=== PATIENT | male | born 1975 | race Caucasian/White ===

== ENCOUNTER 2024-04-04 10:41 | Outpatient (CLI) | payer BC ==
[2024-04-04] MEDS ORDERED: Iopamidol 300 61% 100 ML VIAL FS ONE (15:45)
== END 2024-04-04 10:42 | disposition home or self-care (01) ==
LOC: CSHCT 10:41
PROVIDERS: ATTEND Urology
DX: C62.92 Malignant neoplasm of left testis, unspecified whether descended or undescended (principal); Z90.79 Acquired absence of other genital organ(s); K57.30 Diverticulosis of large intestine without perforation or abscess without bleeding
CPT/HCPCS: 74177